=== PATIENT | female | born 1980 | race Hispanic/Latino ===

== ENCOUNTER 2017-10-17 05:21 | Day surgery (SDC) | payer MEDICAID ==
[~2017-10-17] VITALS: Ht 160 cm; Wt 73.6 kg
[~2017-10-17 05:21] MED LIST: DICY20TA11 PO; ESOM40CA PO; birth control PO
[2017-10-17] MEDS ORDERED: SODIUM CHLORIDE 0.9% 1000ML 1,000 ML IV ONE (05:56)
[2017-10-17 06:18] VITALS: BP 105/56
[2017-10-17] MEDS ORDERED: PROPOFOL 10 MG/ML 20ML VIAL IV ONE (06:32)
[2017-10-17 06:49] VITALS: BP 101/52
== END 2017-10-17 07:30 | disposition home or self-care (01) ==
LOC: DAH 05:21 → ENDO 05:21
PROVIDERS: ATTEND Internal Medicine
DX: K31.7 Polyp of stomach and duodenum (principal); K29.50 Unspecified chronic gastritis without bleeding; K21.0 Gastro-esophageal reflux disease with esophagitis; K22.8 Other specified diseases of esophagus; K31.89 Other diseases of stomach and duodenum; Z79.899 Other long term (current) drug therapy
CPT/HCPCS: 36415; 43251; 43239; 84703; A4606; J2704; J7030